=== PATIENT | female | born 1960 | race Caucasian/White ===

== ENCOUNTER 2021-07-17 20:57 | Inpatient (IN) | payer OTHER, SELFPAY ==
[~2021-07-17] VITALS: Ht 152.4 cm; Wt 52.6 kg
[2021-07-17 20:57] VITALS: BP 126/93
--- NOTE | 2021-07-17 20:57 | NUR ---
TO BED VIA JEANNETTE BOWERS WITH C/O FEVER
--- NOTE | 2021-07-17 21:45 | NUR ---
Assumed patient care, here for fever. On assesment patient is alert, non-verbal, moans and groans on verbal/tactile stimulus. Connected to security monitor, IV line started and blood collected, sepsis work-up done.
[2021-07-17] MEDS ORDERED: NACL 0.9% 1,000 ML IV ONE (21:50)
[2021-07-17] MEDS ORDERED: OMEP40EC24 GT (22:12)
[2021-07-17] MEDS ORDERED: DOCU-299 PO (22:12)
[2021-07-17] MEDS ORDERED: DIPH25TA53 GT ×2 (22:12)
[2021-07-17] MEDS ORDERED: VENL37.55 GT (22:12)
[2021-07-17] MEDS ORDERED: FERR75LI22 GT (22:12)
[2021-07-17] MEDS ORDERED: [UNRECOGNIZED DRUG - CODE] RC (22:12)
[2021-07-17] MEDS ORDERED: TRAZ-343 PO (22:12)
[2021-07-17] MEDS ORDERED: MULT-2253 GT (22:12)
[2021-07-17 22:28] LABS: BASOPHILS # (AUTO) 0.1 K/uL (0.00-0.22); BASOPHILS % (AUTO) 0.4 % (0.0-2.0); EOSINOPHILS # (AUTO) 0.3 K/uL (0-0.4); HEMATOCRIT 24.9 % (36-48); HEMOGLOBIN 7.9 g/dL (12.0-16.0); LYMPHOCYTES # (AUTO) 1.9 K/uL (2.5-16.5); LYMPHOCYTES % (AUTO) 6.2 % (20.5-51.1); MEAN CORPUSCULAR HEMOGLOBIN 27 pg (27-31); MEAN CORPUSCULAR HGB CONC 32 g/dL (33-37); MEAN CORPUSCULAR VOLUME 84.8 fL (80-94); MONOCYTES # (AUTO) 2.6 K/uL (0.8-1.0); MONOCYTES % (AUTO) 8.4 % (1.7-9.3); NEUTROPHILS # (AUTO) 25.8 K/uL (1.8-7.7); PLATELET COUNT (AUTO) 538 K/uL (140-450); RED BLOOD CELL COUNT(AUTO) 2.93 MIL/uL (4.20-5.40); RED CELL DISTRIBUTION WIDTH 16.4 % (11.6-13.7)
[2021-07-17 22:40] LABS: WHITE BLOOD COUNT (AUTO) 30.7 K/uL (4.8-10.8)
[2021-07-17] MEDS ORDERED: cefTRIAXone 1,000 MG VIAL ONE (22:47)
--- NOTE | 2021-07-17 23:00 | NUR ---
in and out urinary catheter started, sample collected and sent to laboratory.
[2021-07-17 23:03] LABS: ALBUMIN 2.2 g/dL (3.4-5.0); ANION GAP 14.2 (8-16); CARBON DIOXIDE 25.3 mmol/L (21-32); CREATININE 0.8 mg/dL (0.6-1.3); POTASSIUM 4.5 mmol/L (3.5-5.1); TOTAL BILIRUBIN 0.3 mg/dL (0.0-1.0)
[2021-07-17 23:38] LABS: APPEARANCE,URINE CLEAR (CLEAR); BILIRUBIN,URINE NEGATIVE (NEGATIVE); BLOOD, URINE NEGATIVE (NEGATIVE); COLOR,URINE YELLOW (YELLOW); LEUKOCYTE ESTERASE ,URINE NEGATIVE (NEGATIVE); NITRITE, URINE NEGATIVE (NEGATIVE); PH,URINE 6.5 (5.0-9.0); UGLUCOSE NEGATIVE (NEGATIVE)
[2021-07-17] MEDS ORDERED: ACETAMINOPHEN 650 MG SUPP RC ONE (23:45)
[2021-07-18] MEDS ORDERED: AZITHROMYCIN 500 MG in DEXTROSE 5% 250 ML IV ONE (01:25)
[2021-07-18] MEDS ORDERED: HYDROcodone/APAP 5/325 MG 1 TAB TAB PO PRN (01:35)
[2021-07-18] MEDS ORDERED: MAGNESIUM OXIDE 400 MG TAB PO PRN (01:35)
[2021-07-18] MEDS ORDERED: ONDANSETRON 4 MG/2 ML VIAL IVP PRN (01:35)
[2021-07-18] MEDS ORDERED: POTASSIUM CHLORIDE 10 MEQ TABER PO PRN (01:35)
[2021-07-18] MEDS: NACL 0.9% 1,000 ML IV SCH ×2 (03:00→14:20)
[2021-07-18] MEDS ORDERED: AZITHROMYCIN 500 MG INJ VIAL IV ONE (03:26)
--- NOTE | 2021-07-18 04:25 | NUR ---
Report called to Bryce ANDINO.
[2021-07-18 04:35] VITALS: BP 147/87
--- NOTE | 2021-07-18 04:35 | NUR ---
PT ARRIVED IN UNIT VIA GURNEY. REPORT WAS GIVEN BY ER NURSE MYRON. PT AWAKE AND ALERT, ON 2L VIA NC. BREATHING EQUAL AND UNLABORED,CONTRACTED UPPER AN LOWER EXT.SKIN WARM, DRY AND INTACT. AFEBRILE. RASHES ON PERINEAL AREA. IV ON R AC G 20, FLUSHING WELL BUT REDNESS AROUND THE SITE. ST 117 ON TELE MONITOR. FLACC 0. MRSA SWAB DONE. BED IN LOW LOCKED POSITION. ALL SAFETY MEASURES IN PLACE. WILL CONTINUE TO MONITOR.
--- NOTE | 2021-07-18 06:22 | NUR ---
PT LAYING ON BED. BREATHING EQUAL AND UNLABORED. NO DISTRESS NOTED. WILL CONTINUE TO MONITOR.
--- NOTE | 2021-07-18 07:30 | NUR ---
RECEIVED REPORT FROM MANUFACTURING WORKER NURSE FOR CONTINUITY OF CARE. PT AWAKE IN BED, NON VERBAL WITH CONTRACTED UPPER AND LOWER EXTREMITIES. ON O3 VIA NC AT 2L, BREATHING SYMMETRICAL. WITH GT IN PLACE, NO RUNNING FEEDING AT THIS TIME. FLACC O. LFA 24G RUNNING NS AT 80CC/HR. ALL SAFETY MEASURES IN PLACE.
--- NOTE | 2021-07-18 07:37 | NUR ---
ENDORSED TO AM SHIFT NURSE FOR CONTINUITY OF CARE. PT IS STABLE.
--- NOTE | 2021-07-18 07:59 | NUR ---
PT HAS GT BUT NO FEEDING RUNNING AT THIS TIME. DR ALFREDO MADE AWARE THAT PT HAS JEVITY 1.2 AT 40CC/HR WITH 250ML Q4 WATER FLUSH. ALSO PT IS DNR-DNI PER MOTHER'S REQUEST AT THE BOARD AND CARE BUT FULL CODE HERE AT THE HOSPITAL, ALSO MADE AWARE.
[2021-07-18 08:00] VITALS: BP 152/84
--- NOTE | 2021-07-18 08:03 | NUR ---
RECEIVED CALL FROM PAEG ANDINO AT [facility] AND [facility] AND STATED PT HAS ALLERGY TO ZOSYN, PT'S ALLERGY UPDATED.
--- NOTE | 2021-07-18 08:43 | NUR ---
PATIENT HAS BEEN SCREENED AND CATEGORIZED HIGH NUTRITION RISK. PATIENT WILL BE SEEN WITHIN 1-2 DAYS OF ADMISSION. /09/06 RECEIVED CONSULT AND REFERRAL FOR TUBE FEEDING ROD[address]
--- NOTE | 2021-07-18 10:57 | NUR ---
PT STARTED ON GT FEEDING OF VITAL AF 1.2 AT 40CC/HR WITH 250CC H20 FLUSHES Q6HRS. GT INTACT AND PATENT, WILL CONTINUE TO MONITOR. HOB KEPT ELEVATED
[2021-07-18 12:00] VITALS: BP 127/87
--- NOTE | 2021-07-18 13:40 | NUR ---
PT NOTED WITH BILATERAL BUTTOCK REDNESS THAT SEEMS LIKE DERMATITIS, PT IS INCONTINENT. DR ALFREDO MADE AWARE, ORDER FOR HYDRAGUARD CREAM IN PLACE. WOUND CONSULT ALREADY IN PLACE. ALSO MADE AWARE THAT PT'S HEART RATE RANGES FROM 110-120, TACHYCARDIAC ALREADY UPON ADMISSION LAST NIGHT.
--- NOTE | 2021-07-18 14:00 | NUR ---
SPOKE WITH TEST FIXTURE DESIGNER RODOLFO REGARDING TUBE FEEDING RECOMMENDATION, DR ALFREDO AWARE. INCREASED GTF TO 50CC/HR, 200CC H2O FLUSHES Q6H. RESIDUAL ABOUT 5CC AT THIS TIME. WILL CONTINUE TO MONITOR.
--- NOTE | 2021-07-18 14:22 | NUR ---
PT HAS RAC 20G IV LINE, INFILTRATED, REDNESS NOTED. REMOVED LINE. NO ACTIVE BLEEDING NOTED.
--- NOTE | 2021-07-18 15:03 | NUR ---
07/18/21 RD INITIAL ASSESSMENT COMPLETED PLEASE REFER TO NUTRITION ASSESSMENT UNDER CARE ACTIVITY FOR ESTIMATED NUTRITIONAL NEEDS. 1. RECOMMEND VITAL AF 1.2 WITH A GOAL RATE OF 50 ML/HR -FWF: 200 ML Q6H OR PER MD -WILL PROVIDE 1440 KCAL AND 90 GM PROTEIN, MEETING ESTIMATED NUTRITIONAL NEEDS 2. MONITOR GASTRIC RESIDUALS AND NUTRITION-RELATED LABS 3. RD TO FOLLOW-UP 2-3 DAYS, HIGH RISK RODOLFO CLARK RD
[2021-07-18 16:00] VITALS: BP 129/71
--- NOTE | 2021-07-18 16:36 | NUR ---
DC [age] YRS OLD FEMALE PATIENT WAS ADMITTED FROM [facility] WITH A DX OF SEPSIS. PATIENT HAS A HX OF CEREBRAL PALSY, INTELLECTUAL DISABILITY QUADRIPLEGIC BLIND AND G-TUBE . CXR SHOWED SUSPECTED RIGHT PERIHILAR EDEMA OR PNEUMONIA. RAPID COVID TEST NEGATIVE. WBC 30.7 URINE AND BLOOD CULTURE PENDING. ADMINISTERED IVF, IV ABX AZITHROMYCIN AND ROCEPHIN AND CONTINUED HOME MEDS. DC PLAN TO RETURN TO [facility] WHEN STABLE. CM TO FOLLOW
--- NOTE | 2021-07-18 17:15 | NUR ---
PT ASLEEP. BREATHING SYMMETRICAL, ON O2 2L VIA NC. GT INTACT AND PATENT, 10CC RESIDUAL NOTED. HOB KEPT ELEVATED. NO GI DISTRESS NOTED AT THIS TIME. FLACC O. ALL SAFETY MEASURES IN PLACE.
--- NOTE | 2021-07-18 19:15 | NUR ---
ENDORSED PT TO AREA SECRETARY NURSE. PT IN STABLE CONDITION
[2021-07-18 20:00] VITALS: BP 134/73
--- NOTE | 2021-07-18 21:00 | NUR ---
G TUBE - RESIDUAL 30CC - SOFT ABD. G TUBE FEEDING - TOLERATING - WILL CONT. TO MONITOR .
--- NOTE | 2021-07-18 22:00 | NUR ---
HOT TO TOUCH - TEMP RE CHECK - 100.7 F - INFILTRATED IV SITE - WILL MEDICATE FOR FEVER - ST ON TELE MONITOR , O2 SAT 100 % Addendum: 07/19/21 at 0033 by Juliana Lara RN IV NEEDLE REMOVE - INTACT NEEDLE - MIN. BLEEDING - WILL CONT. TO MONITOR .
--- NOTE | 2021-07-18 22:10 | NUR ---
NEW IV SITE RE INSERTED - MIN. BLEEDING - PROCEDURE TOLERATED WELL BY THE PT - WILL CONT. TO MONITOR .
[2021-07-18] MEDS: AZITHROMYCIN 500 MG in DEXTROSE 5% 250 ML IV SCH (22:17)
[2021-07-18] MEDS: traZODone 50 MG TAB GT SCH (22:20)
[2021-07-18] MEDS: ACETAMINOPHEN 325 MG TAB PO PRN (22:21)
[2021-07-19] VITALS: BP 118/54
[2021-07-19] MEDS: AZITHROMYCIN 500 MG in DEXTROSE 5% 250 ML IV SCH ×2
--- NOTE | 2021-07-19 01:58 | NUR ---
ROUNDS , SLEEPING , CHEST RISE AND FALL EQUALLY , ON O2 SAT MONITOR , ON TELE MONITOR , ON O2 AT 2LPM/NC - O2 SAT 100 % - WILL CONT. TO MONITOR .
[2021-07-19] MEDS: NACL 0.9% 1,000 ML IV SCH ×2 (02:35→14:36)
[2021-07-19 04:00] VITALS: BP 119/69
[2021-07-19 05:46] LABS: BASOPHILS # (AUTO) 0.1 K/uL (0.00-0.22); BASOPHILS % (AUTO) 0.3 % (0.0-2.0); EOSINOPHILS # (AUTO) 0.9 K/uL (0-0.4); EOSINOPHILS % (AUTO) 3.7 % (0.0-4.0); HEMATOCRIT 21.1 % (36-48); LYMPHOCYTES # (AUTO) 1.1 K/uL (2.5-16.5); LYMPHOCYTES % (AUTO) 4.4 % (20.5-51.1); MEAN CORPUSCULAR HEMOGLOBIN 26 pg (27-31); MEAN CORPUSCULAR HGB CONC 31 g/dL (33-37); MEAN CORPUSCULAR VOLUME 85.5 fL (80-94); MONOCYTES # (AUTO) 2.1 K/uL (0.8-1.0); MONOCYTES % (AUTO) 8.6 % (1.7-9.3); NEUTROPHILS # (AUTO) 20.6 K/uL (1.8-7.7); PLATELET COUNT (AUTO) 428 K/uL (140-450); RED BLOOD CELL COUNT(AUTO) 2.47 MIL/uL (4.20-5.40); RED CELL DISTRIBUTION WIDTH 16.6 % (11.6-13.7); WHITE BLOOD COUNT (AUTO) 24.9 K/uL (4.8-10.8)
[2021-07-19 05:57] LABS: ANION GAP 11.9 (8-16); CARBON DIOXIDE 27.2 mmol/L (21-32); CREATININE 0.8 mg/dL (0.6-1.3); POTASSIUM 4.1 mmol/L (3.5-5.1)
[2021-07-19 06:02] LABS: HEMOGLOBIN 6.5 g/dL (12.0-16.0)
--- NOTE | 2021-07-19 07:00 | NUR ---
RELAYED TO A PALIWAL ABOUT LATEST HGB , HCT , WBC- WILL CONT. TO MONITOR. Addendum: 07/19/21 at 0743 by Juliana Lara RN THE ABOVE NURSE'S NOTE IS AN ERROR ENTRY - ABRAHAM
--- NOTE | 2021-07-19 07:25 | NUR ---
RECEIVED BEDSIDE REPORT FROM TOMBSTONE CARVER NURSE FOR CONTINUITY OF CARE. PT IS APHASIC, NONVERBAL. ON 2L O2 NC WITH BREATHING UNLABORED. G TUBE IN PLACE WITH FEEDING INFUSING. PT IS INCONTINENT WITH DRY DIAPER IN PLACE. INCONTINENT DERMATITIS WITH HYPOGUARD AT BEDSIDE. IV IS IN THE LEFT HAND 24 GAUGE WITH NS INFUSING. PT IS STABLE. PLAN OF CARE DISCUSSED.
--- NOTE | 2021-07-19 07:35 | NUR ---
ENDORSED - PT - STABLE , ON HIGH BACK REST .AWAKE
--- NOTE | 2021-07-19 07:43 | NUR ---
RELAYED THE LATEST HGB - HE TEXTED BACK W/ NEW ORDERS - THE DR ALFREDO'S NEW ORDER - ENDORSED TO NURSE MICHAEL - SHE WILL CARRY OUT .
--- NOTE | 2021-07-19 07:44 | NUR ---
REPORTED HGB LEVEL OF 6.[address] ALFREDO VIA MESSAGE. HE RESPONDED WITH ORDER FOR 2 UNITS PRBC. PLACED ORDER, WILL WAIT FOR BLOOD TO BE READY.
[2021-07-19 08:00] VITALS: BP 136/71
[2021-07-19] MEDS ORDERED: VENLAFAXINE 37.5 MG TAB GT SCH (09:00)
--- NOTE | 2021-07-19 09:00 | NUR ---
MESSAGED DR. ALFREDO TO INFORM HIM HE NEEDS TO SIGN CONSENT PRIOR TO BLOOD TRANSFUSION ADMINISTRATION. WILL ADMINISTER BLOOD PRODUCT WHEN CONSENT IS SIGNED.
--- NOTE | 2021-07-19 09:15 | NUR ---
WOUND CARE EVALUATION NOTE: PT ADMITTED WITH NO OPEN WOUND.MOISTURE ASSOCIATED DERMATITIS TO PERINEUM AND BUTTOCKS, SKIN MOIST, INTACT. GT SITE LIZETT-STOMA SKIN INTACT. PT. ADMITTED WITH LOW REGI SCALE AT HIGH RISK, CONTINUE TO FOLLOW PRESSURE INJURY PREVENTION INTERVENTIONS. RECOMMENDATIONS: -CLEANSE PERINEUM AND BUTTOCKS WITH MILD SOAP AND WATER, PAT DRY, APPLY CALMOSEPTINE CREAM BID AND PRN IF SOILING -TURN AND REPOSITION PATIENT Q 2H -INSPECT SKIN UNDER AND AROUND MEDICAL DEVICES. -ASSESS AND MONITOR SKIN CONDITION DURING POSITION CHANGE -OFFLOAD BILATERAL HEELS BY PLACING PILLOWS UNDER CALVES AT ALL TIMES, UNLESS OTHERWISE CONTRAINDICATED -APPLY HEEL PROTECTORS -PRESSURE REDISTRIBUTION SURFACE AND OFFLOADING SACRALCOCCYX -MANAGE FRICTION AND SHEAR BY USING LIFT SHEET TO REPOSITION PATIENT -HOB 30 DEGREE TOLERATE -PLEASE FOLLOW RD RECOMMENDATIONS PLEASE NOTIFIED WOUND CARE NURSE FOR ANY CHANGE OF SKIN CONDITION
[2021-07-19] MEDS: HYDRAGUARD CREAM TP SCH (09:40)
[2021-07-19] MEDS: ENOXAPARIN 40 MG/0.4 ML SYR SUBQ SCH (09:40)
--- NOTE | 2021-07-19 10:00 | NUR ---
PT IS AWAKE, APHASIC. IV WAS INFILTRATED AND REMOVED. NEED TO PLACE NEW IV SHORTLY. G TUBE IN PLACE. DRY DIAPER IN PLACE. WILL CONT TO MONITOR.
[2021-07-19 12:00] VITALS: BP 104/70
--- NOTE | 2021-07-19 13:00 | NUR ---
NEW IV'S PLACED IN THE RIGHT HAND 24 GAUGE BY CHARGE NURSE. ANOTHER IV PLACED IN THE LEFT FOREARM 20 GAUGE. IV FLUIDS STARTED.
[2021-07-19] MEDS: MENTHOL/ZINC OXIDE 113 GM TUBE TP SCH (13:25)
--- NOTE | 2021-07-19 14:00 | NUR ---
PHYSICIAN AT BEDSIDE. SPOKE TO MILENA THAO ON THE PHONE. RECEIVED VERBAL CONSENT FOR BLOOD TRANSFUSION WHICH WAS VERIFIED BY SECOND RN. CONSENT SIGNED BY PHYSICIAN. CALLED LAB AND BLOOD IS NOT READY, THEY WILL CALL WHEN BLOOD IS READY TO BE PICKED UP.
[2021-07-19 16:00] VITALS: BP 138/83
--- NOTE | 2021-07-19 16:01 | NUR ---
BATH WAS PROVIDED AND PT WAS REPOSITIONED. NO DISTRESS NOTED. UPPER AND LOWER EXTREMITIES ARE CONTRACTED. FLACC 0. G TUBE IS IN PLACE INFUSING FEEDING ORDERED. IV'S INTACT INFUSING FLUIDS. BED IS IN LOWEST POSITION.
--- NOTE | 2021-07-19 18:05 | NUR ---
BLOOD TRANSFUSION WAS STARTED. VS ARE STABLE AT THIS TIME. PT IS APHASIC, NONVERBAL WITH NO SIGNS OF DISTRESS. IV IS PATENT AND INFUSING. WILL CONTINUE TO MONITOR PT.
--- NOTE | 2021-07-19 19:09 | NUR ---
ENDORSED PT TO MEDICARE SALES REPRESENTATIVE NURSE FOR CONTINUITY OF CARE. PT IS STABLE. ONE UNIT OF BLOOD STILL INFUSING. PT TOLERATING IT WELL. VS STABLE. NO DISTRESS NOTED. PLAN OF CARE DISCUSSED.
[2021-07-19 20:00] VITALS: BP 133/85
--- NOTE | 2021-07-19 22:00 | NUR ---
VOMITED COFFEE GROUND VOMITUS - STOP FEEDING , WOF ACUTE SIGNS OF DISTRESS - O2 SAT 97 % - WILL REFER TO DR ALFREDO . Addendum: 07/20/21 at 0754 by Juliana Lara RN REFERRED TO DR. ALFREDO , I INFORMED DR. ALFREDO I STOPPED FOR I WHILE THE FEEDING DUE TO VOMITING AND I WILL RESUME IT IF NO PROGRESSION OF VOMITING - DR. ALFREDO TEXT BACK " OK " . AND HE MADE NEW ORDER AND WILL CARRY OUT .
--- NOTE | 2021-07-19 22:09 | NUR ---
O2 SAT 99 % - AWAKE NO SIGNS OF ACUTE DISTRESS NOTED AT THIS TIME - WILL SENT FOR CT ABD.
[2021-07-19] MEDS: traZODone 50 MG TAB GT SCH (23:47)
[2021-07-20] VITALS: BP 127/85
--- NOTE | 2021-07-20 00:06 | NUR ---
BP 122/77 , 02 SAT 98 % , HR 125 - WILL FF UP PRBC TO THE LAB , WILL RESUME G TUBE FEEDING - NO PROGRESS OF VOMITING NOTED AT THIS TIME .
--- NOTE | 2021-07-20 01:08 | NUR ---
2ND BAG PRBC - NOT STILL AVAILABLE - INFORMED CHARGE NURSE IF FOR CBC - HOURS AFTER THE 1ST BAG OR WILL WAIT THE 2ND UNIT OF PRBC - CHARGE NURSE SAID - WAIT THE 2ND U PRBC TO BE CONSUMED BEFORE THE RPT CBC POST BT .
--- NOTE | 2021-07-20 01:30 | NUR ---
HOT TO TOUCH - TEMP. RE CHECKED - T 100.2 - INFORMED CHARGE NURSE . WILL WAIT TILL FEVER SUBSIDE BEFORE HOOK THE 2ND U PRBC .- TSB.
[2021-07-20] MEDS: MENTHOL/ZINC OXIDE 113 GM TUBE TP SCH ×2 (01:35→13:40)
[2021-07-20] MEDS: ACETAMINOPHEN 325 MG TAB PO PRN (01:51)
--- NOTE | 2021-07-20 01:52 | NUR ---
NO N/V NOTED - RESUME FEEDING - FOR CLOSELY WATCH .
--- NOTE | 2021-07-20 01:58 | NUR ---
ASSESSED BY RT DURING ROUNDS .WILL CONT. TO MONITOR .
--- NOTE | 2021-07-20 03:00 | NUR ---
TEMP RE CHECK - 97.7 F Addendum: 07/20/21 at 0303 by Juliana Lara RN NO N/V NOTED - WILL INCREASE G TUBE FEEDING GRADUALLY - WILL CONT. TO MONITOR .
--- NOTE | 2021-07-20 03:30 | NUR ---
NO S/SX OF BLOOD RXN - WILL CONT. TO MONITOR
[2021-07-20 04:00] VITALS: BP 121/80
--- NOTE | 2021-07-20 04:00 | NUR ---
NO S/SX OF DISTRESS NOTED AT THIS TIME , NO BLD RXN NOTED AT THIS TIME , WILL CONT. TO MONITOR .
--- NOTE | 2021-07-20 06:00 | NUR ---
ROUNDS , NO SIGNS OF DISTRESS NOTED , NO BT RXN NOTED , FEEDING TOLERATED - WILL CONT. TO MONITOR . DR. ALFREDO AWARE ABOUT THE RESULT OF CT ABD/ PELVIS .
--- NOTE | 2021-07-20 06:30 | NUR ---
2ND U PRBC COMPLETED - NO BT RXN NOTED . NO SIGNS OF ACUTE DISTRESS NOTED , FEEDING TOLERATED .
--- NOTE | 2021-07-20 07:25 | NUR ---
RECEIVED BEDSIDE REPORT FROM AUTO TECH NURSE FOR CONTINUITY OF CARE. PT IS APHASIC, NONVERBAL. ON 2L O2 NC WITH BREATHING UNLABORED. ON TELE MONITOR. G TUBE IN PLACE INFUSING FEEDING ORDERED. INCONTINENT OF THE BOWEL AND BLADDER. INCONTINENT DERMATITIS NOTED IN THE PERINEAL AREA WITH MEDICINE AT BEDSIDE TO APPLY ORDERED. IV IS IN THE RIGHT HAND 24 GAUGE AND LEFT FA 20 GAUGE INFUSING FLUID ORDERED. PT IS STABLE. PLAN OF CARE DISCUSSED.
--- NOTE | 2021-07-20 07:39 | NUR ---
ENDORSED - PT - STABLE , ON O2 SAT MONITOR , ON HIGH BACK REST .
[2021-07-20 08:00] VITALS: BP 139/85
--- NOTE | 2021-07-20 08:04 | NUR ---
INFORM CHARGE NURSE ANTONY TO PUT AN ORDER FOR RPT CBC POST BT AT 0830 TODAY - ANTONY VERBALIZES UNDERSTANDING . 2ND U PRBC BT COMPLETED AT 0630 TODAY .
[2021-07-20] MEDS: PANTOPRAZOLE 40 MG INJ VIAL IVP SCH (08:57)
[2021-07-20] MEDS: HYDRAGUARD CREAM TP SCH (08:58)
[2021-07-20] MEDS: ENOXAPARIN 40 MG/0.4 ML SYR SUBQ SCH (09:00)
--- NOTE | 2021-07-20 09:01 | NUR ---
HELD LOVENOX DUE TO DROP IN HGB, S/P BLOOD TRANSFUSION 2 UNITS. POSSIBLE BLEEDING OF UNKNOWN SOURCE.
--- NOTE | 2021-07-20 09:30 | NUR ---
PT WAS CHANGED AND BED BATH GIVEN. PT TOLERATED MOVEMENT FAIRLY. DOES NOT ASSIST WITH MOVEMENT, BEDBOUND AND CONTRACTED. BREATHING UNLABORED ON 2L O2 NC. FLACC 0. PT STABLE.
--- NOTE | 2021-07-20 10:07 | NUR ---
(07/20/21) RD FOLLOW UP COMPLETED PLEASE REFER TO NUTRITION PROGRESS NOTE UNDER CARE ACTIVITY FOR ESTIMATED NUTRITION NEEDS. RD RECOMMENDATIONS: 1. CONTINUE VITAL AF 1.2 WITH A GOAL RATE OF 50 ML/HR -FWF: 200 ML Q6H OR PER MD -WILL PROVIDE 1440 KCAL AND 90 GM PROTEIN, MEETING ESTIMATED NUTRITIONAL NEEDS 2. MONITOR GASTRIC RESIDUALS AND NUTRITION-RELATED LABS 3. RD TO FOLLOW-UP 2-3 DAYS, HIGH RISK ANY SHEETS MS, RDN
[2021-07-20 10:12] LABS: BASOPHILS % (AUTO) 0.1 % (0.0-2.0); EOSINOPHILS # (AUTO) 0.6 K/uL (0-0.4); EOSINOPHILS % (AUTO) 2.4 % (0.0-4.0); HEMATOCRIT 33.8 % (36-48); HEMOGLOBIN 11.1 g/dL (12.0-16.0); LYMPHOCYTES # (AUTO) 0.8 K/uL (2.5-16.5); LYMPHOCYTES % (AUTO) 3.4 % (20.5-51.1); MEAN CORPUSCULAR HEMOGLOBIN 28 pg (27-31); MEAN CORPUSCULAR HGB CONC 33 g/dL (33-37); MEAN CORPUSCULAR VOLUME 84.6 fL (80-94); MONOCYTES # (AUTO) 1.9 K/uL (0.8-1.0); NEUTROPHILS # (AUTO) 19.9 K/uL (1.8-7.7); NEUTROPHILS % (AUTO) 86.1 % (42.2-75.2); PLATELET COUNT (AUTO) 411 K/uL (140-450); RED BLOOD CELL COUNT(AUTO) 3.99 MIL/uL (4.20-5.40); RED CELL DISTRIBUTION WIDTH 15.7 % (11.6-13.7)
[2021-07-20 10:16] LABS: ANION GAP 11.6 (8-16); CARBON DIOXIDE 26.9 mmol/L (21-32); CREATININE 0.6 mg/dL (0.6-1.3); POTASSIUM 3.5 mmol/L (3.5-5.1)
[2021-07-20 11:17] LABS: WHITE BLOOD COUNT (AUTO) 23.2 K/uL (4.8-10.8)
--- NOTE | 2021-07-20 11:26 | NUR ---
ROUNDED ON PT. SHE IS AWAKE WITH EYES OPEN. APHASIC AND NONVERBAL. NO DISTRESS NOTED. G TUBE INFUSING, RESIDUAL IS LESS THAN 5 ML. PT IS STABLE.
[2021-07-20 12:00] VITALS: BP 118/68
--- NOTE | 2021-07-20 13:30 | NUR ---
PT IS SLEEPING IN SEMI FOWLERS POSITION. G TUBE FEEDING IS INFUSING ORDERED. TOLERATING IT WELL WITH LESS THAN 10 ML RESIDUAL. IVS ARE PATENT AND INTACT. BREATHING IS UNLABORED. PT IS STABLE. WILL MONITOR.
--- NOTE | 2021-07-20 15:12 | NUR ---
PT WAS CHANGED AND REPOSITIONED. PT VOIDED IN THE DIAPER WITH SCANT AMOUNT OF BM. BM WAS DARK BROWN IN COLOR. PT TOLERATED MOVEMENT OKAY. CONTRACTED UPPER AND LOWER EXTREMITIES WITH PILLOWS TO SUPPORT BONY REGIONS. PT STABLE.
[2021-07-20 16:00] VITALS: BP 118/75
--- NOTE | 2021-07-20 17:30 | NUR ---
PT IS RESTING COMFORTABLY. NO DISTRESS NOTED. BREATHING IS UNLABORED ON RA. O2 SAT IS 92%. G TUBE RESIDUAL IS LESS THAN 5 ML. WILL CONTINUE TO MONITOR.
--- NOTE | 2021-07-20 19:24 | NUR ---
ENDORSED PT TO DIRECTOR DIGITAL ANALYTICS NURSE FOR CONTINUITY OF CARE. PT IS STABLE. PLAN OF CARE DISCUSSED.
--- NOTE | 2021-07-20 19:28 | NUR ---
RECEIVED REPORT FROM AM RN. PATIENT IS APHASIC. NO S/S OF RESPIRATORY DISTRESS. RESPIRATION EVEN UNLABORED. ALL SAFETY PRECAUTIONS ARE IN PLACE. G-TUBE FEEDING VITAL AF RUNNING AT 50 MLS/HR TOLERATING WELL. RESIDUAL 5ML NOTED. IVF NS INFUSING AT 10 ML ON THE RIGHT HAND. SKIN WARM AND DRY TO THE TOUCH. FLACC 0. WILL CONTINUE TO MONITOR.
--- NOTE | 2021-07-20 19:53 | NUR ---
ADMINISTERED SCHEDULED MEDICATIONS DUE.
[2021-07-20 20:00] VITALS: BP 112/72
[2021-07-20] MEDS: traZODone 50 MG TAB GT SCH (20:14)
[2021-07-20] MEDS: AZITHROMYCIN 500 MG in DEXTROSE 5% 250 ML IV SCH (20:56)
--- NOTE | 2021-07-20 22:57 | NUR ---
URINE CULTURE RESULTS ENTEROCOCCUS FAECIUM VRE. SOFTWARE TEST DEVELOPER DR JONES MADE AWARE WITH NEW ORDERS, CARRIED OUT. PLS CONTACT DR. HERNANDEZ FOR ABX ZYVOX APPROVAL.
[2021-07-21] VITALS: BP 118/68
[2021-07-21] MEDS: MENTHOL/ZINC OXIDE 113 GM TUBE TP SCH ×2 (01:00→13:11)
--- NOTE | 2021-07-21 02:00 | NUR ---
HANGED A NEW FEEDING BOTTLE. PATIENT IS SLEEPING. OBSERVED CHEST RISE AND FALL. NO DISTRESS.
[2021-07-21 04:00] VITALS: BP 122/77
[2021-07-21 06:01] LABS: BASOPHILS # (AUTO) 0.1 K/uL (0.00-0.22); BASOPHILS % (AUTO) 0.3 % (0.0-2.0); EOSINOPHILS # (AUTO) 1.1 K/uL (0-0.4); EOSINOPHILS % (AUTO) 5.3 % (0.0-4.0); HEMATOCRIT 31.2 % (36-48); HEMOGLOBIN 10.3 g/dL (12.0-16.0); LYMPHOCYTES # (AUTO) 1.1 K/uL (2.5-16.5); LYMPHOCYTES % (AUTO) 5.1 % (20.5-51.1); MEAN CORPUSCULAR HEMOGLOBIN 28 pg (27-31); MEAN CORPUSCULAR HGB CONC 33 g/dL (33-37); MEAN CORPUSCULAR VOLUME 85.2 fL (80-94); MONOCYTES # (AUTO) 1.5 K/uL (0.8-1.0); MONOCYTES % (AUTO) 7.5 % (1.7-9.3); NEUTROPHILS # (AUTO) 16.9 K/uL (1.8-7.7); PLATELET COUNT (AUTO) 438 K/uL (140-450); RED BLOOD CELL COUNT(AUTO) 3.66 MIL/uL (4.20-5.40); RED CELL DISTRIBUTION WIDTH 15.8 % (11.6-13.7); WHITE BLOOD COUNT (AUTO) 20.6 K/uL (4.8-10.8)
[2021-07-21 06:18] LABS: ANION GAP 11.1 (8-16); CARBON DIOXIDE 27.5 mmol/L (21-32); CREATININE 0.7 mg/dL (0.6-1.3); POTASSIUM 3.6 mmol/L (3.5-5.1)
[2021-07-21 06:42] LABS: NEUTROPHILS % (AUTO) 81.8 % (42.2-75.2)
--- NOTE | 2021-07-21 07:20 | NUR ---
ENDORSED PATIENT TO AM NURSE FOR CONTINUITY OF CARE.PT IS STABLE.
--- NOTE | 2021-07-21 07:36 | NUR ---
RECEIVED BEDSIDE REPORT FROM SOCIAL WORK PROFESSOR NURSE FOR CONTINUITY OF CARE. PT IS APHASIC, NONVERBAL. ON RA WITH BREATHING UNLABORED. ON TELE MONITOR. G TUBE IN PLACE INFUSING FEEDING ORDERED. INCONTINENT OF THE BOWEL AND BLADDER. REDNESS ON THE PERINEAL REGION AND BUTTOCKS; INCONTINENT DERMATITIS. IV IS IN THE LEFT FA AND RIGHT HAND INTACT AND PATENT. PT IS STABLE. PLAN OF CARE DISCUSSED.
[2021-07-21 08:00] VITALS: BP 141/69
--- NOTE | 2021-07-21 08:21 | NUR ---
WAS INFORMED BY PHARMACIST THAT THERE IS A DRUG INTERACTION WITH THE NEW ORDER FOR LINEZOLID AND EFFEXOR. RECOMMENDED STOPPING EFFEXOR FOR NOW. MESSAGED DR. ALFREDO INFORMING HIM OF THIS SITUATION AND ASKING IF HE WOULD LIKE TO STOP THE EFFEXOR FOR NOW SO WE CAN ADMINISTER LINEZOLID. WILL WAIT FOR RESPONSE.
--- NOTE | 2021-07-21 08:55 | NUR ---
RECEIVED MESSAGE FROM DR. ALFREDO TO STOP EFFEXOR AND START LINEZOLID. INFORMED PHARMACIST AND SHE STATED SHE WILL PUT IN THESE ORDERS.
[2021-07-21] MEDS: PANTOPRAZOLE 40 MG INJ VIAL IVP SCH (09:03)
[2021-07-21] MEDS: ENOXAPARIN 40 MG/0.4 ML SYR SUBQ SCH (09:04)
[2021-07-21] MEDS: LINEZOLID 600MG PREMIX 300 ML IV SCH ×2 (09:04→21:48)
[2021-07-21] MEDS: HYDRAGUARD CREAM TP SCH (09:07)
--- NOTE | 2021-07-21 10:05 | NUR ---
RECEIVED VERBAL ORDER FOR PT/PTT/INR FROM DR. HERNANDEZ. FOLLOWED UP WITH RADIOLOGY DEPARTMENT ABOUT LEFT NEPHROSTOMY TUBE PLACEMENT. THEY STATED THEY WILL FOLLOW UP WITH THE RADIOLOGIST AND CALL ME BACK FOR MORE INFO.
--- NOTE | 2021-07-21 10:34 | NUR ---
LAB AT BEDSIDE DRAWING PT/PTT/INR. PT TOLERATED FAIRLY. AFTER PT WAS GIVEN BED BATH AND OINTMENT APPLIED TO BUTTOCKS AND PERINEAL AREA. PT IS CONTRACTED UPPER AND LOWER EXTREMITIES BILAT. PT IS STABLE. WILL CONTINUE TO MONITOR.
[2021-07-21 11:10] LABS: PROTHROMBIN TIME 9.8 secs (10.8-13.4)
--- NOTE | 2021-07-21 11:35 | NUR ---
PROVIDED THE PT/PTT/INR RESULTS TO THE RADIOLOGY DEPARTMENT. THEY WILL CALL ME BACK AFTER SPEAKING WITH THE RADIOLOGIST ON WHETHER OR NOT THEY WILL PLACE THE NEPHROSTOMY TUBE TODAY.
--- NOTE | 2021-07-21 11:53 | NUR ---
RECEIVED CALL BACK FROM RADIOLOGY DEPARTMENT. [facility] PROVIDED ORDERS FROM DR. LOPEZ TO PLACE NEPHROSTOMY TUBE TOMORROW. ORDERS GIVEN TO HOLD BLOOD THINNER TOMORROW AND PLACE NPO AFTER MIDNIGHT. ORDERS PLACED. WILL ENDORSE TO ETHNOARCHAEOLOGIST NURSE.
[2021-07-21 12:00] VITALS: BP 125/78
--- NOTE | 2021-07-21 12:00 | NUR ---
CALLED PHARMACIST AND SHE PUT THE LOVENOX ON HOLD TILL AFTER THE IR PROCEDURE TOMORROW.
--- NOTE | 2021-07-21 12:17 | NUR ---
PT IS SLEEPING IN SEMI FOWLERS POSITION. PT IS STABLE. FLACC 0. IVS ARE INTACT AND PATENT. BED ALARM ON. WILL MONITOR.
--- NOTE | 2021-07-21 15:00 | NUR ---
PT WAS REPOSITIONED. PT VOIDED IN DIAPER AND WAS CHANGED. NO DISTRESS NOTED. BREATHING IS UNLABORED. FLACC 0. WILL MONITOR.
[2021-07-21 16:00] VITALS: BP 138/76
--- NOTE | 2021-07-21 17:43 | NUR ---
PT IS APHASIC. ON RA WITH NO RESP. DISTRESS. CLEAN AND DRY WITH DIAPER INTACT. G TUBE IS IN PLACE AND FEEDING IS INFUSING. RESIDUAL IS LESS THAN 5 ML. PT STABLE.
--- NOTE | 2021-07-21 19:24 | NUR ---
PT WAS ENDORSED TO COUNSELOR CAMP NURSE FOR CONTINUITY OF CARE. PT IS STABLE. PLAN OF CARE DISCUSSED.
--- NOTE | 2021-07-21 19:25 | NUR ---
RECEIVED PT FROM AM NURSE FOR CONTINUITY OF CARE. PT STABLE IV INTACT ,GT FEEDING RUNNING, ALL SAFETY MEASURES IN PLACE,BREATHING EVEN AND UNLABORED
[2021-07-21 20:00] VITALS: BP 153/95
[2021-07-21] MEDS: traZODone 50 MG TAB GT SCH (21:46)
--- NOTE | 2021-07-21 22:00 | NUR ---
ALL MEDS GIVEN TOLERATED WELL, NO DISTRESS NOTED
[2021-07-21] MEDS: ACETAMINOPHEN 325 MG TAB PO PRN (23:37)
[2021-07-22] VITALS: BP 150/87
--- NOTE | 2021-07-22 | NUR ---
PATIENT TEMP 100.6,TYLENOL 650 MG GIVEN AND COOLING MEASURES,ALL SAFETY MEASURES IN PLACE ,NO DISTRESS NOTED
--- NOTE | 2021-07-22 01:33 | NUR ---
TEMP 98.0 AT THIS TIME, BREATHING EVEN AND UNLABORED .NO DISTRESS NOTED
[2021-07-22] MEDS: MENTHOL/ZINC OXIDE 113 GM TUBE TP SCH ×2 (02:38→13:00)
[2021-07-22 04:00] VITALS: BP 154/96
--- NOTE | 2021-07-22 04:00 | NUR ---
PATIENT TEMP WNL, ALL SAFETY MEASURES IN PLACE,NO DISTRESS NOTED
[2021-07-22 05:29] LABS: HEMATOCRIT 32.4 % (36-48); HEMOGLOBIN 10.7 g/dL (12.0-16.0); MEAN CORPUSCULAR HEMOGLOBIN 28 pg (27-31); MEAN CORPUSCULAR HGB CONC 33 g/dL (33-37); PLATELET COUNT (AUTO) 503 K/uL (140-450); RED BLOOD CELL COUNT(AUTO) 3.81 MIL/uL (4.20-5.40); RED CELL DISTRIBUTION WIDTH 16.5 % (11.6-13.7); WHITE BLOOD COUNT (AUTO) 20.8 K/uL (4.8-10.8)
[2021-07-22 05:45] LABS: ANION GAP 10.7 (8-16); CARBON DIOXIDE 30.3 mmol/L (21-32); CREATININE 0.7 mg/dL (0.6-1.3)
--- NOTE | 2021-07-22 06:00 | NUR ---
CLEANED AND REPOSITIONED,NO DISTRESS NOTED ,GT FEEDING RUNNING,
--- NOTE | 2021-07-22 07:48 | NUR ---
RECEIVED REPORT FROM PM RN FOR CONTINUITY OF CARE, PT NONVERBAL, APPEARS ASLEEP, VSS, NO ACUTE DISTRESS, SAFETY MEASURES MAINTAINED, CALL LIGHT WITHIN REACH, WILL CONTINUE TO MONITOR
[2021-07-22 08:00] VITALS: BP 125/92
[2021-07-22] MEDS: PANTOPRAZOLE 40 MG INJ VIAL IVP SCH (08:55)
[2021-07-22] MEDS: LINEZOLID 600MG PREMIX 300 ML IV SCH ×2 (08:55→22:43)
[2021-07-22] MEDS: HYDRAGUARD CREAM TP SCH (08:56)
--- NOTE | 2021-07-22 09:17 | NUR ---
SPOKE TO EMMY AT [facility] - STATED MOM IS INVOLVED IN CARE AND WOULD CONSENT. LEFT MOM MILENA Hardwick VOICEMAIL @ [phone]
--- NOTE | 2021-07-22 10:30 | NUR ---
RECEIVED TELEPHONE CONSENT FROM MOTHER Kristin ABBOTT FOR NEPHROSTOMY TUBE PLACEMENT
[2021-07-22] MEDS ORDERED: fentaNYL citrate 0.05 MG/ML VIAL ONE (11:11)
[2021-07-22] MEDS ORDERED: MIDAZOLAM 5 MG/5 ML VIAL ONE (11:12)
[2021-07-22 12:00] VITALS: BP 140/94
--- NOTE | 2021-07-22 12:09 | NUR ---
PATIENT OFF OF UNIT - TO IR FOR NEPHROSTOMY PLACEMENT
[2021-07-22] MEDS ORDERED: LEVOFLOXACIN 500 MG/D5W PREMIX 100 ML IV ONE (12:50)
--- NOTE | 2021-07-22 13:04 | NUR ---
LATE ENTRY- IV CEFTRIAXONE DISCONTINUED AT 0425.
--- NOTE | 2021-07-22 14:37 | NUR ---
PT RETURNED FROM IR S/P L NEPHROSTOMY TUBE PLACEMENT - DRESSING DRY AND INTACT. RED DRAINAGE, SAFETY MEASURES MAINTAINED, WILL CONTINUE TO MONITOR
[2021-07-22 16:00] VITALS: BP 110/59
[2021-07-22 17:09] LABS: EOSINOPHILS % (MANUAL) 5 % (0-4); LYMPHOCYTES % (MANUAL) 11 % (20-46); MONOCYTES % (MANUAL) 3 % (5-12)
--- NOTE | 2021-07-22 19:21 | NUR ---
PATIENT ON ROOM AIR SATS 92%. NO SOB NOTED
[2021-07-22 20:00] VITALS: BP 124/76
--- NOTE | 2021-07-22 20:20 | NUR ---
PATIENT IS APHASIC. NO S/S OF RESPIRATORY DISTRESS. ON ROOM AIR. RESPIRATION EVEN UNLABORED. ALL SAFETY PRECAUTIONS ARE IN PLACE. IVF INFUSING AT TKO. TUBE FEEDING VITAL AF RUNNING AT 50 ML/HR TOLERATING WELL. FLACC 0. WILL CONTINUE TO MONITOR.
--- NOTE | 2021-07-22 22:43 | NUR ---
MEDICATIONS ADMINISTERED ORDERED.
[2021-07-22] MEDS: traZODone 50 MG TAB GT SCH (22:44)
[2021-07-23] VITALS: BP 136/81
--- NOTE | 2021-07-23 00:10 | NUR ---
PATIENT CLEANED, CHANGED AND REPOSITIONED.
[2021-07-23] MEDS: MENTHOL/ZINC OXIDE 113 GM TUBE TP SCH ×2 (01:00→12:38)
--- NOTE | 2021-07-23 02:50 | NUR ---
MADE ROUNDS. PT IS SLEEPING. LEFT NEPHROSTOMY TUBE DRAINING PINKISH OUTPUT. DRESSING DRY AND INTACT.
[2021-07-23 04:00] VITALS: BP 118/90
[2021-07-23 05:26] LABS: BASOPHILS % (AUTO) 0.2 % (0.0-2.0); EOSINOPHILS # (AUTO) 0.3 K/uL (0-0.4); EOSINOPHILS % (AUTO) 1.2 % (0.0-4.0); HEMATOCRIT 31.1 % (36-48); HEMOGLOBIN 10.2 g/dL (12.0-16.0); LYMPHOCYTES # (AUTO) 1.6 K/uL (2.5-16.5); LYMPHOCYTES % (AUTO) 5.7 % (20.5-51.1); MEAN CORPUSCULAR HEMOGLOBIN 28 pg (27-31); MEAN CORPUSCULAR HGB CONC 33 g/dL (33-37); MEAN CORPUSCULAR VOLUME 85.4 fL (80-94); MONOCYTES # (AUTO) 1.3 K/uL (0.8-1.0); MONOCYTES % (AUTO) 4.8 % (1.7-9.3); NEUTROPHILS # (AUTO) 24.9 K/uL (1.8-7.7); NEUTROPHILS % (AUTO) 88.1 % (42.2-75.2); PLATELET COUNT (AUTO) 492 K/uL (140-450); RED BLOOD CELL COUNT(AUTO) 3.64 MIL/uL (4.20-5.40); RED CELL DISTRIBUTION WIDTH 16.3 % (11.6-13.7)
[2021-07-23 05:30] LABS: WHITE BLOOD COUNT (AUTO) 28.3 K/uL (4.8-10.8)
[2021-07-23 06:52] LABS: ANION GAP 10.4 (8-16); CARBON DIOXIDE 30.2 mmol/L (21-32); CREATININE 0.7 mg/dL (0.6-1.3); POTASSIUM 3.6 mmol/L (3.5-5.1)
--- NOTE | 2021-07-23 07:15 | NUR ---
ENDORSED TO AM NURSE FOR CONTINUITY OF CARE. PT IS STABLE.
--- NOTE | 2021-07-23 07:59 | NUR ---
RECEIVED REPORT FROM WINCH RUNNER RN. VSAlthea. NAD NOTED. NO RESIDUAL AND FEEDING RESTARTED. WILL CONTINUE TO MONITOR.
[2021-07-23 08:02] VITALS: BP 126/88
[2021-07-23] MEDS: HYDRAGUARD CREAM TP SCH (08:39)
[2021-07-23] MEDS: LINEZOLID 600MG PREMIX 300 ML IV SCH ×2 (08:39→21:29)
[2021-07-23] MEDS: PANTOPRAZOLE 40 MG INJ VIAL IVP SCH (08:39)
[2021-07-23 12:00] VITALS: BP 122/83
--- NOTE | 2021-07-23 12:10 | NUR ---
DC PLANNING: KENDELL SPOKE WITH GARY WEBSTER AT [facility] ([phone]), SHE STATES THE PATIENT CAN RETURN TO [facility] WITH THE LEFT NEPHROSTOMY TUBE. KENDELL WILL FOLLOW. Addendum: 07/23/21 at 1251 by Bonnie VELASCO DC PLANNING BRITNI ATTEMPTED TO SPEAK EMMY WEBSTER FROM [facility] AT . EMMY DID NOT ANSWER THE CALL AND BRITNI WILL CONTINUE ATTEMPTING TO CONTACT HER TO DISCUSS AND GATHER PATIENT INFORMATION. BRITNI LEFT HER A VOICE MAIL, DIRECT CONTACT NUMBER AND REQUEST FOR A CALL BACK.
--- NOTE | 2021-07-23 15:30 | NUR ---
07/23/21 RD FOLLOW UP COMPLETED PLEASE REFER TO NUTRITION ASSESSMENT UNDER CARE ACTIVITY FOR ESTIMATED NUTRITIONAL NEEDS. 1. CONTINUE VITAL AF 1.2 @ 50 ML/HR TOLERATED -FWF: 200 ML Q6H OR PER MD -PROVIDES 1440 KCAL AND 90 GM PROTEIN, MEETING ESTIMATED NUTRITIONAL NEEDS 2. MONITOR GASTRIC RESIDUALS AND NUTRITION-RELATED LABS 3. RD TO FOLLOW-UP 2-3 DAYS, HIGH RISK RODOLFO [address]ARK RD
[2021-07-23 16:00] VITALS: BP 129/98
--- NOTE | 2021-07-23 19:03 | NUR ---
WILL ENDORSE CARE TO NIGHTSHIFT RN.
--- NOTE | 2021-07-23 19:13 | NUR ---
RECEIVED ENDORSEMENT FROM AM NURSE. PATIENT IS APHASIC, ASLEEP. NO SOB NOTED BREATHING EVEN UNLABORED. ON ROOM AIR. ALL SAFETY PRECAUTIONS ARE IN PLACE. TUBE FEEDING RUNNING AT 50 MLS/HR TOLERATING WELL. HEAD OF BED ELEVATED. WILL CONTINUE TO MONITOR.
[2021-07-23 20:00] VITALS: BP 121/72
--- NOTE | 2021-07-23 21:29 | NUR ---
ADMINISTERED SCHEDULED MEDICATIONS DUE.
[2021-07-23] MEDS: traZODone 50 MG TAB GT SCH (21:30)
--- NOTE | 2021-07-23 23:25 | NUR ---
URINE COLLECTED FROM NEPHROSTOMY TUBE FOR URINE CULTURE SENT TO LAB.
[2021-07-24] VITALS: BP 128/61
--- NOTE | 2021-07-24 00:30 | NUR ---
PATIENT CLEANED, CHANGED AND REPOSITIONED. PT IN STABLE CONDITION.
[2021-07-24] MEDS: MENTHOL/ZINC OXIDE 113 GM TUBE TP SCH ×2 (01:35→12:30)
[2021-07-24 04:00] VITALS: BP 134/80
--- NOTE | 2021-07-24 07:17 | NUR ---
ENDORSED PATIENT TO AM NURSE FOR CONTINUITY OF CARE. PT IS STABLE.
[2021-07-24 08:11] VITALS: BP 130/84
--- NOTE | 2021-07-24 08:38 | NUR ---
PT HAS NO IV ACCESS. PER MOLD SETTER UNABLE TO START NEW ONE. ATTEMPTED THIS MORNING AND WAS UNSUCCESSFUL. ID MD AWARE. SWITCHED MEDICATION TO GTUBE ROUTE.
[2021-07-24] MEDS: LINEZOLID 600 MG TAB GT SCH ×2 (08:55→20:56)
[2021-07-24] MEDS: PANTOPRAZOLE 40 MG INJ VIAL IVP SCH (08:56)
[2021-07-24] MEDS: HYDRAGUARD CREAM TP SCH (08:56)
[2021-07-24 12:00] VITALS: BP 124/82
[2021-07-24 16:00] VITALS: BP 124/82
--- NOTE | 2021-07-24 19:15 | NUR ---
RECEIVED REPORT FROM AM NURSE. PATIENT IS NON VERBAL. NO SOB, BREATHING REGULAR UNLABORED. TUBE FEEDING VITAL AF RUNNING AT 50 ML/HR TOLERATING WELL. ALL SAFETY PRECAUTIONS ARE IN PLACE. WILL CONTINUE TO MONITOR.
[2021-07-24 20:00] VITALS: BP 114/72
--- NOTE | 2021-07-24 20:50 | NUR ---
SCHEDULED MEDICATIONS ADMINISTERED.
--- NOTE | 2021-07-24 20:55 | NUR ---
PATIENT CLEANED, CHANGED AND REPOSITIONED.
[2021-07-24] MEDS: traZODone 50 MG TAB GT SCH (20:56)
[2021-07-25] VITALS: BP 114/67
[2021-07-25] MEDS: MENTHOL/ZINC OXIDE 113 GM TUBE TP SCH ×2 (01:03→13:44)
[2021-07-25 04:00] VITALS: BP 115/70
--- NOTE | 2021-07-25 07:22 | NUR ---
ENDORSED PATIENT TO AM NURSE FOR CONTINUITY OF CARE. PT IS STABLE.
--- NOTE | 2021-07-25 07:25 | NUR ---
RECEIVED REPORT FROM SPRAY PAINTING MACHINE OPERATOR NURSE FOR CONTINUITY OF CARE. PT ALSEEP IN BED. BREATHING SYMMETRICAL ON ROOM AIR. GT INTACT AND PATENT RUNNING VITAL AF 1.2 AT 50CC/HR. HOB KEPT ELEVATED. NO PERIPHERAL IV LINE NOTED. WITH LEFT NEPHROSTOMY TUBE DRAINING YELLOW URINE. FLACC O. ALL SAFETY MEASURES IN PLACE.
[2021-07-25 08:00] VITALS: BP 117/78
[2021-07-25] MEDS: LINEZOLID 600 MG TAB GT SCH ×2 (08:38→20:20)
[2021-07-25] MEDS: levoFLOXacin 750 MG TAB GT SCH (08:38)
[2021-07-25] MEDS: HYDRAGUARD CREAM TP SCH (09:00)
[2021-07-25] MEDS: PANTOPRAZOLE 40 MG INJ VIAL IVP SCH (09:00)
--- NOTE | 2021-07-25 10:40 | NUR ---
INSERTED IV LINE ON RIGHT HAND 22G, NO S/SX OF INFILTRATION NOTED.
[2021-07-25 12:00] VITALS: BP 128/62
[2021-07-25 12:28] LABS: ANION GAP 12.2 (8-16); BASOPHILS # (AUTO) 0.2 K/uL (0.00-0.22); CARBON DIOXIDE 29.5 mmol/L (21-32); CREATININE 0.6 mg/dL (0.6-1.3); EOSINOPHILS # (AUTO) 1.4 K/uL (0-0.4); HEMATOCRIT 34.3 % (36-48); HEMOGLOBIN 11.2 g/dL (12.0-16.0); LYMPHOCYTES # (AUTO) 1.7 K/uL (2.5-16.5); LYMPHOCYTES % (AUTO) 9.9 % (20.5-51.1); MEAN CORPUSCULAR HEMOGLOBIN 28 pg (27-31); MEAN CORPUSCULAR HGB CONC 33 g/dL (33-37); MEAN CORPUSCULAR VOLUME 85.3 fL (80-94); MONOCYTES # (AUTO) 0.8 K/uL (0.8-1.0); MONOCYTES % (AUTO) 4.9 % (1.7-9.3); NEUTROPHILS # (AUTO) 12.9 K/uL (1.8-7.7); NEUTROPHILS % (AUTO) 76.2 % (42.2-75.2); PLATELET COUNT (AUTO) 580 K/uL (140-450); POTASSIUM 3.7 mmol/L (3.5-5.1); RED BLOOD CELL COUNT(AUTO) 4.02 MIL/uL (4.20-5.40); WHITE BLOOD COUNT (AUTO) 16.9 K/uL (4.8-10.8)
--- NOTE | 2021-07-25 13:49 | NUR ---
DR ARIZMENDI MADE AWARE OF WBC 16.9 STILL HIGH BUT WENT DOWN FROM 28.3 ON 07/23, URINE CULTURE STILL PENDING. ALSO LEFT MESSAGE TO DR HERNANDEZ CONSULTING ID .
[2021-07-25 16:00] VITALS: BP 117/85
--- NOTE | 2021-07-25 16:30 | NUR ---
PT NON VERBAL. BREATHING SYMMETRICAL, ON ROOM AIR. FLACC O. GT FEEDING TOLERATING WELL. HOB KEPT ELEVATED. ALL SAFETY MEASURES IN PLACE.
--- NOTE | 2021-07-25 19:32 | NUR ---
ENDORSED PT TO CAP BLOCKER NURSE, IN STABLE CONDITION. EMPTIED LEFT NEPHROSTOMY TUBE AGAIN AND OBTAINED 200CC OUTPUT.
--- NOTE | 2021-07-25 19:35 | NUR ---
RECEIVED BEDSIDE REPORT FROM DAY SHIFT NURSE. PATIENT IS AWAKE, APHASIC, NOT ABLE TO FOLLOW COMMANDS. RESPIRATION EVEN UNLABORED ON ROOM AIR. NO DISTRESS NOTED. SKIN IS WARM AND DRY. IV PATENT AND INTACT. G-TUBE FEEDING NOTED. LEFT NEPHROSTOMY BAG NOTED. PLAN OF CARE UPDATED. ALL SAFETY MEASURES IN PLACE. BED IS AT LOW POSITION. CALL LIGHT WITHIN REACH. WILL CONTINUE TO MONITOR
[2021-07-25 20:00] VITALS: BP 108/73
--- NOTE | 2021-07-25 20:00 | NUR ---
INITIAL ASSESSMENT DONE. VITALS WERE TAKEN. CHECKED G-TUBE RESIDUAL, OBTAINED 75CC. WILL CONTINUE TO MONITOR
[2021-07-25] MEDS: traZODone 50 MG TAB GT SCH (20:20)
--- NOTE | 2021-07-25 20:20 | NUR ---
ALL SCHEDULED MEDS WERE GIVEN PER ORDER. WILL CONTINUE TO MONITOR.
[2021-07-26] VITALS: BP 102/66
--- NOTE | 2021-07-26 00:24 | NUR ---
VITALS WERE TAKEN. PT IS NO DISTRESS NOTED
--- NOTE | 2021-07-26 00:45 | NUR ---
WOUND CARE PROVIDED
--- NOTE | 2021-07-26 01:32 | NUR ---
MADE ROUNDS, PATIENT SLEEPING RESPIRATION EVEN UNLABORED ON ROOM AIR. NO DISTRESS NOTED
[2021-07-26 04:00] VITALS: BP 107/67
--- NOTE | 2021-07-26 04:10 | NUR ---
VITALS WERE TAKEN
[2021-07-26] MEDS: MENTHOL/ZINC OXIDE 113 GM TUBE TP SCH ×2 (04:57→12:35)
--- NOTE | 2021-07-26 05:23 | NUR ---
AM CARE PROVIDED
--- NOTE | 2021-07-26 07:19 | NUR ---
ENDORSED PATIENT TO DAY SHIFT NURSE FOR CONTINUITY OF CARE
--- NOTE | 2021-07-26 07:20 | NUR ---
RECEIVED REPORT FROM APPLICATION MANAGER NURSE FOR CONTINUITY OF CARE. PT AWAKE IN BED. BREATHING SYMMETRICAL ON ROOM AIR. FLACC O. WITH RIGHT HAND 22G, ON SALINE LOCK. GT INTACT AND PATENT, WITH NEPHROSTOMY TUBE DRAINING YELLOW URINE. ALL SAFETY MEASURES IN PLACE.
[2021-07-26 08:00] VITALS: BP 127/91
[2021-07-26] MEDS: PANTOPRAZOLE 40 MG INJ VIAL IVP SCH (08:11)
[2021-07-26] MEDS: LINEZOLID 600 MG TAB GT SCH ×2 (08:11→22:07)
[2021-07-26] MEDS: HYDRAGUARD CREAM TP SCH (08:36)
--- NOTE | 2021-07-26 08:37 | NUR ---
NOTED RIGHT HAND IV LINE, INFILTRATED AND LEAKING. CHANGED TO LEFT HAND 24G, NO S/SX OF INFILTRATION NOTED AT THIS TIME.
--- NOTE | 2021-07-26 09:04 | NUR ---
DC PLANNING: THE PATIENT ADMITTED THROUGH THE ER FROM AN [facility] IN [place] WITH C/O FEVER OF 101, H/O CEREBRAL PALSY AND DEVELOPMENTAL DELAY, PATIENT WITH PEG AND COLOSTOMY, NON-VERBAL. CT OF ABD/PELVIS SHOWS SEVERE LEFT HYDRONEPHROSIS AND MULTIPLE CALCULI AND A CALCIFIED LESION IN THE LL OF LIVER. WBC'S 30.7 ON ADMISSION, LACTIC ACID 3.6, ADMITTED FOR SEPSIS, UTI AND HYDRONEPHROSIS MANAGEMENT. CONSULTS WITH ID, NEPHRO, UROLOGY AND WOUND CONSULT. STARTED ON LEVAQUIN AND ZYVOX. LEFT NEPHROSTOMY TUBE PLACED BY IR, WBC'S TODAY AT 16.9, CONTINUES ON IV ABX. THE PATIENT'S BASELINE IS NON-VERBAL AND TOTAL CARE AT [facility], DC PLAN IS FOR THE PATIENT TO RETURN WHEN CLINICALLY STABLE THE CHAR [facility]END[facility] CELL[facility] STATES THAT THEY CAN ACCEPT THE PATIENT WITH THE NEPHROSTOMY TUBE. UROLOGY RECOMMENDS THAT IT BE CHANGED EVERY 2-3 MONTHS. CM WILL FOLLOW. Addendum: 07/26/21 at 0914 by Darline Rocha CM Amended: Links added. Addendum: 07/26/21 at 1256 by Darline Rocha CM DC PLANNING: THE PATIENT WILL DC BACK TO [facility] AND CONTINUE ON PO ABX. CM SPOKE WITH [facility], THEY [facility] CALL CM WITH PHARMACOLOGY ASSOCIATE TIME. REPORT TO BE CALLED TO THU ABEL AT [facility] AT [phone]. DC INFORMATION GIVEN TO THE PATIENTS THU SON CM WILL FOLLOW FOR NEEDS. Addendum: 07/26/21 at 1454 by Darline Rocha CM DC PLANNING: PATIENTS NURSE ENDORSED THAT THE FACILITY HAS QUESTIONS ABOUT ACCEPTING THE PATIENT BACK, KENDELL SPOKE WITH THE THU ABEL ([phone]), SHE IS QUESTIONING IF PATIENT IS APPROPRIATE FOR THE [facility] AND WILL HAVE DR BOWLING CALL DR ARIZMENDI TO DISCUSS CONTINUED TREATMENT AND PLACEMENT. KENDELL SPOKE WITH EMMY DARIN WHO STATES THAT THEY CAN'T ACCEPT THE PATIENT WITH [facility], SHE NEEDS TO BE STRAIGHT M/FABIAN. SHE WAS SUPPOSED TO BE STRAIGHT M/FABIAN OF 07/16. PATIENT IS REGIONAL CENTER CONNECTED AND WILL NEED AUTHORIZATION FOR WHICH SNF SHE GOES TO. [facility] WORKER PER EMMY IS GETACHEW URIBE, EMMY WILL CALL BACK WITH HER PHONE NUMBER. CM WILL FOLLOW. Addendum: 07/26/21 at 1626 by Darline Rocha CM DC PLANNING: KENDELL EMAILED THE PATIENTS REGIONAL WORKER GETACHEW ASKING FOR DIRECTION ON SNF PLACEMENT, NO RESPONSE YET. DR ARIZMENDI NOTIFIED THAT PATIENT IS NOT ACCEPTED BACK TO [facility] AND THAT KENDELL IS WORKING WITH THE REGIONAL WORKER REGARDING PLACEMENT. CM WILL FOLLOW. Addendum: 07/29/21 at 1033 by Darline Rocha CM DC PLANNING: KENDELL RECEIVED A CALL FROM GETACHEW AT THE [facility] IN RESPONSE TO EMAIL SENT TO HER THURSDAY. HER PHONE IS [phone]. EXPLAINED THAT PATIENT WILL NEED SNF PLACEMENT IN AN [facility] CONTRACTED FACILITY HER FACILITY CAN'T TAKE HER BACK AT THIS TIME. GETACHEW WOULD LIKE THE PATIENT CLOSER TO THE FAMILY WHO ARE CLOSE TO [place] AND ASKED THAT PATIENT BE REFERRED TO [facility]. KENDELL SPOKE WITH TACOS AT [facility] AND [facility] IS CONTRACTED, CM FAXED REFERRAL FOR PLACEMENT AND WILL FOLLOW FOR RESPONSE. Addendum: 07/29/21 at 1415 by Darline Rocha CM DC PLANNING: PATIENT DECLINED BY [facility], NO INTERMEDIATE FEMALE BEDS. REFERRAL FAXED TO [facility] AND GETACHEW SCHUSTER AT THE [facility] IS AWARE. CM WILL FOLLOW. Addendum: 07/29/21 at 1613 by Darline Rocha CM DC PLANNING: PATIENT ACCEPTED TO [facility], NUMBER TO CALL REPORT IS [phone]. DR VAZQUEZ TO FOLLOW, ROOM NUMBER PENDING. REQUEST FOR TRANSPORT FAXED TO [facility], PHONE [phone]. REQUESTED 1800 PHARMACOLOGY ASSOCIATE TIME, NUMBER FOR THE PATIENTS NURSE CHRISTIAN ON FORM SO THEY CAN FOLLOW UP ON CONFIRMATION FOR PHARMACOLOGY ASSOCIATE. CM WILL FOLLOW. Addendum: 07/29/21 at 1621 by Darline Rocha CM DC PLANNING: KENDELL SPOKE WITH THE [facility] WORKER GETACHEW TO LET HER KNOW THAT THE PATIENT IS GOING TO [facility]. KENDELL WILL FOLLOW.
--- NOTE | 2021-07-26 11:46 | NUR ---
PT TRANSFERRED TO ROOM 106B. PT IS AWAKE, NON VERBAL. BREATHING SYMMETRICAL ON ROOM AIR. FLACC O. PT CHANGED AND CLEANED WELL. GT INTACT AND PATENT. LEFT NEPHROSTOMY TUBE INTACT DRAINING YELLOW URINE. ALL SAFETY MEASURES IN PLACE.
[2021-07-26 12:00] VITALS: BP 105/74
--- NOTE | 2021-07-26 12:18 | NUR ---
07/26/21 RD FOLLOW UP COMPLETED PLEASE REFER TO NUTRITION ASSESSMENT UNDER CARE ACTIVITY FOR ESTIMATED NUTRITIONAL NEEDS. 1. CONTINUE VITAL AF 1.2 @ 50 ML/HR TOLERATED -FWF: 200 ML Q6H OR PER MD -PROVIDES 1440 KCAL AND 90 GM PROTEIN, MEETING ESTIMATED NUTRITIONAL NEEDS 2. MONITOR GASTRIC RESIDUALS AND NUTRITION-RELATED LABS 3. RD TO FOLLOW-UP 3-5 DAYS, MODERATE RISK (DOWNGRADED D/T PT TOLERATING TF WELL WITH NO GI SYMPTOMS OR GASTRIC RESIDUALS) [address]
[2021-07-26] MEDS ORDERED: LINE600T10 GT (12:29)
[2021-07-26] MEDS ORDERED: LEVO750T51 GT (12:29)
--- NOTE | 2021-07-26 13:15 | NUR ---
WOUND CARE RE-EVALUATION NOTE: MOISTURE ASSOCIATED DERMATITIS TO PERINEUM AND BUTTOCKS, SKIN REDNESS IMPROVING AND RESPONDING TO CALMOSEPTINE CR. SKIN MOIST AND INTACT.
--- NOTE | 2021-07-26 13:18 | NUR ---
SPOKE WITH THU ABEL FROM [facility]. STATED SHE NEEDS REPORT FIRST TO DETERMINE IF THEY WILL BE ABLE TO TAKE PT, WILL CALL BACK FOR APPLICATION TECHNICIAN TIME, STATED SHE WILL DISCUSS WITH HER MANAGER FOOD SAFETY FIRST BEFORE THEY ARRANGE FOR TRANSPORTATION. Addendum: 07/26/21 at 1354 by Yohana Guerrero RN PAGE CONCERNED ABOUT PT'S WBC. MADE AWARE THAT PT'S WBC HAS BEEN TRENDING DOWN AND THAT PT IS CURRENTLY ON ANTIBIOTIC. CM UPDATED.
--- NOTE | 2021-07-26 15:02 | NUR ---
RECEIVED UPDATE FROM CM, PAGE ANDINO FROM [facility] IS QUESTIONING PT'S PLACEMENT APPROPRIATENESS IN [facility] AND WILL HAVE DR BOWLING TALK TO DR CARRERO. AWAITING FOR FURTHER UPDATES FROM CM.
[2021-07-26 16:00] VITALS: BP 104/75
--- NOTE | 2021-07-26 17:35 | NUR ---
PT AWAKE IN BED. BREATHING SYMMETRICAL. FLACC O. GT INTACT AND PATENT, TOLERATING GTF WELL. HOB KEPT ELEVATED. APPLIED CALMOSEPTINE DURING CARE FOR ID ON BUTTOCKS. ALL SAFETY MEASURES IN PLACE.
--- NOTE | 2021-07-26 19:30 | NUR ---
RECEIVED REPORT FROM RN DAYSHIFT NURSE AT BEDSIDE FOR CONTINUITY OF CARE, PT IN BED AOX1 SHE HAS A LEFT HAND 24 GUAGE WHICH IS SALINE LOCKED. PT HAS A G TUBE WHICH IS RUNNING VITAL AF 1.2 AT 50MLS/HR. PT ALSO HAS A LEFT NEPHROSTOMY TUBE WHICH IS INTACT AND DRAINING LIGHT CLOUDY PALE URINE. PT IS INCONTINENT ANS HAS RED RAW SKIN FROM INCONTINENT DERMATITIS. HOB UP ALL ORDERED PRECAUTIONS IN PLACE.
[2021-07-26 20:00] VITALS: BP 127/93
--- NOTE | 2021-07-26 20:00 | NUR ---
PT WAS TURNED, CHANGED AND REPOSITIONED IN BED V/S FOLLOWS: T 97.4 P 102 R 18 B/P 127/93 02 94% ON ROOM AIR. TUBE FEEDING RUNNING ORDERED. ALL ORDERED PRECAUTIONS IN PLACE.
--- NOTE | 2021-07-26 21:30 | NUR ---
PT GIVEN TRAZODONE AND ZYVOX VIA G TUBE, PT UNABLE TO COMPREHEND EDUCATION REGARDING MEDICATION. ALL ORDERED PRECAUTIONS IN PLACE.
[2021-07-26] MEDS: traZODone 50 MG TAB GT SCH (22:07)
[2021-07-27] VITALS: BP 102/67
--- NOTE | 2021-07-27 | NUR ---
PT IN BED, ROUNDS DONE, SHE WAS TURNED, CHANGED AND REPOSITIONED IN BED. V/S FOLLOWS: T 97.8 R 20 P 110 R 20 B/P 102/67 02 93%. ALL ORDERED PRECAUTIONS IN PLACE.
[2021-07-27] MEDS: MENTHOL/ZINC OXIDE 113 GM TUBE TP SCH ×2 (01:47→13:15)
[2021-07-27 04:00] VITALS: BP 113/65
--- NOTE | 2021-07-27 06:00 | NUR ---
PT IN BED SHE WAS TURNED CHANGED AND REPOSITIONED IN BED NEPHROSTOMY DRAINED 50MLS. SHE HAS NO S/S OF PAIN OR DISTRESS NOTED. BARRIER CREAM ORDERED ORDERED.
--- NOTE | 2021-07-27 07:30 | NUR ---
REPORT RECEIVED FROM PM SHIFT FOR CONTINUITY OF CARE, PT APPEARS ASLEEP, SAFETY MEASURES MAINTAINED, CALL LIGHT WITHIN REACH, WILL CONTINUE TO MONITOR
[2021-07-27 08:00] VITALS: BP 119/81
[2021-07-27] MEDS: PANTOPRAZOLE 40 MG INJ VIAL IVP SCH (08:44)
[2021-07-27] MEDS: LINEZOLID 600 MG TAB GT SCH ×2 (08:44→21:10)
[2021-07-27] MEDS: levoFLOXacin 750 MG TAB GT SCH (08:44)
[2021-07-27] MEDS: HYDRAGUARD CREAM TP SCH (08:45)
[2021-07-27 12:00] VITALS: BP 124/76
--- NOTE | 2021-07-27 12:15 | NUR ---
PT GIVEN BED BATH, REPOSITIONED, SAFETY MEASURES MAINTAINED, WILL CONTINUE TO MONITOR
[2021-07-27 16:00] VITALS: BP 128/70
--- NOTE | 2021-07-27 19:20 | NUR ---
RECEIVED PT AWAKE , FLACC O , NID - O2 SAT WNL , ON G TUBE FEEDING TOLERATING - RESIDUAL 20 CC - SOFT ABD. W/ NEPROSTOMY TUBE INTACT CONNECTING TO URINE BAG DRAINING CLEAR YELLOW , GOOD U.O . FALL RISK - SIDERAILS UP , LOW REGI SCALE - WILL KEEP PT DRY AND CLEAN AT ALL TIMES , ON TELE MONITOR BIT ST - AFEBRILE , RESTING ON BED COMFORTABLY . WILL CONT. TO MONITOR .
[2021-07-27 20:00] VITALS: BP 112/62
[2021-07-27] MEDS: traZODone 50 MG TAB GT SCH (21:11)
--- NOTE | 2021-07-27 22:00 | NUR ---
ROUNDS , AWAKE , NO SIGNS OF DISTRESS NOTED AT THIS TIME .
[2021-07-28] VITALS: BP 122/60
--- NOTE | 2021-07-28 | NUR ---
ROUNDS , AWAKE , NO SIGNS OF DISTRESS NOTED AT THIS TIME .
[2021-07-28] MEDS: MENTHOL/ZINC OXIDE 113 GM TUBE TP SCH ×2 (01:13→13:00)
--- NOTE | 2021-07-28 01:59 | NUR ---
SLEEPING - CHEST RISE AND FALL EQUALLY . ON TELE MONITOR
[2021-07-28 04:00] VITALS: BP 123/82
--- NOTE | 2021-07-28 04:00 | NUR ---
ROUNDS NO SIGNS OF DISTRESS NOTED AT THIS TIME .
--- NOTE | 2021-07-28 07:30 | NUR ---
RECIVED REPORT FROM PM SHIFT RN FOR CONTINUITY OF CARE. PT. AWAKE. STABLE. BREATHINGS NORMAL. NO DISTRESS OBSERVED. GT FEEDING RUNNING DALE. WELL. SAFETY MEASURES IN PLACE. WILL CONTINUE TO MONITOR THE PT.
--- NOTE | 2021-07-28 07:30 | NUR ---
ENDORSED - PT - STABLE .
[2021-07-28 08:00] VITALS: BP 128/98
[2021-07-28] MEDS: PANTOPRAZOLE 40 MG INJ VIAL IVP SCH (08:16)
[2021-07-28] MEDS: LINEZOLID 600 MG TAB GT SCH ×2 (08:16→20:41)
[2021-07-28] MEDS: HYDRAGUARD CREAM TP SCH (08:17)
--- NOTE | 2021-07-28 09:14 | NUR ---
PT. COMFORTABLY RESTING.. NO S/SX OF DISTRESS NOTED. ADMINISTERED SCHEDULED MEDICATIONS. PT. TOLERATED WELL. NO RESIDUAL NOTED. NO N/V NOTED. ALL SAFETY MEASURES IN PLACE. WILL CONTINUE TO MONITOR THE PT.
[2021-07-28 12:00] VITALS: BP 132/82
--- NOTE | 2021-07-28 14:00 | NUR ---
MADE ROUND. PT. AWAKE, COMFORTABLY LYING IN THE BED. NO S/SX OF DISTRESS OBSERVED. ON ROOM AIR. BED IN LOW POSITION. WILL CONTINUE TO MONITOR THE PT.
[2021-07-28 14:47] LABS: BASOPHILS # (AUTO) 0.1 K/uL (0.00-0.22); BASOPHILS % (AUTO) 0.9 % (0.0-2.0); EOSINOPHILS # (AUTO) 0.9 K/uL (0-0.4); EOSINOPHILS % (AUTO) 6.1 % (0.0-4.0); HEMATOCRIT 36.7 % (36-48); HEMOGLOBIN 11.6 g/dL (12.0-16.0); LYMPHOCYTES % (AUTO) 13.7 % (20.5-51.1); MEAN CORPUSCULAR HEMOGLOBIN 28 pg (27-31); MEAN CORPUSCULAR HGB CONC 32 g/dL (33-37); MEAN CORPUSCULAR VOLUME 86.8 fL (80-94); MONOCYTES # (AUTO) 0.7 K/uL (0.8-1.0); MONOCYTES % (AUTO) 4.9 % (1.7-9.3); NEUTROPHILS # (AUTO) 10.9 K/uL (1.8-7.7); NEUTROPHILS % (AUTO) 74.4 % (42.2-75.2); PLATELET COUNT (AUTO) 578 K/uL (140-450); RED BLOOD CELL COUNT(AUTO) 4.23 MIL/uL (4.20-5.40); RED CELL DISTRIBUTION WIDTH 17.5 % (11.6-13.7); WHITE BLOOD COUNT (AUTO) 14.6 K/uL (4.8-10.8)
[2021-07-28 15:15] LABS: ANION GAP 11.2 (8-16); CARBON DIOXIDE 28.1 mmol/L (21-32); CREATININE 0.6 mg/dL (0.6-1.3); POTASSIUM 4.3 mmol/L (3.5-5.1)
[2021-07-28 16:00] VITALS: BP 113/68
--- NOTE | 2021-07-28 17:26 | NUR ---
KEPT CLEAN AND DRY THE PT. DURING SHIFT. REPOSITIONED THE PT. GT FEEDING CONTINUE. NO RESIDUAL OR N/V NOTED. PT. REMAINED STABLE. NO ACUTE DISTRESS NOTED. ALL SAFETY MEASURES IN PLACE. WILL CONTINUE TO MONITOR THE PT.
--- NOTE | 2021-07-28 19:23 | NUR ---
ENDORSED REPORT TO PM SHIFT RN FOR CONTINUITY OF CARE. PT. STABLE.
[2021-07-28 20:00] VITALS: BP 112/69
[2021-07-28] MEDS: traZODone 50 MG TAB GT SCH (20:40)
[2021-07-29] VITALS: BP 110/60
--- NOTE | 2021-07-29 | NUR ---
rounds , no signs of acute distress noted , will cont. to monitor
[2021-07-29] MEDS: MENTHOL/ZINC OXIDE 113 GM TUBE TP SCH ×2 (01:00→13:44)
--- NOTE | 2021-07-29 02:00 | NUR ---
SLEEPING , CHEST RISE AND FALL EQUALLY
[2021-07-29 04:00] VITALS: BP 115/72
--- NOTE | 2021-07-29 04:00 | NUR ---
AWAKE , O2 SAT WNL , FLACC 0 . G TUBE TOLERATING
--- NOTE | 2021-07-29 06:00 | NUR ---
AWAKE , NO SIGNS OF DISTRESS NOTED AT THIS TIME . ON TELE MONITOR .
--- NOTE | 2021-07-29 07:27 | NUR ---
ENDORSED - PT - STABLE .
--- NOTE | 2021-07-29 07:27 | NUR ---
RECEIVED REPORT FROM WORKDAY DIRECTOR NURSE FOR CONTINUITY OF CARE.
[2021-07-29 08:00] VITALS: BP 135/79
[2021-07-29] MEDS: PANTOPRAZOLE 40 MG INJ VIAL IVP SCH (09:25)
[2021-07-29] MEDS: levoFLOXacin 750 MG TAB GT SCH (09:25)
[2021-07-29] MEDS: HYDRAGUARD CREAM TP SCH (09:26)
--- NOTE | 2021-07-29 09:32 | NUR ---
PT AWAKE NO DISTRESS NOTE. GIVEN MEDICATION VIA GT NO ADVERSE REACTION NOTED. RN GAVE IVP MEDICATION.
--- NOTE | 2021-07-29 11:30 | NUR ---
PATIENT ON BED RESTING HEAD OF BED ELEVATED FOR ASPIRATION PRECAUTION.
[2021-07-29 12:00] VITALS: BP 114/74
--- NOTE | 2021-07-29 13:30 | NUR ---
REPOSITION PATIENT. CHANGE AND TREATMENT DONE ON LIZETT ANAL REDNESS TOLERATED WELL. KEEP HEAD OF BED ELEVATED FOR ASPIRATION PRECAUTION.
[2021-07-29 16:00] VITALS: BP 118/70
--- NOTE | 2021-07-29 16:00 | NUR ---
PATIENT AWAKE PULLED HER UP AGAIN AND VITAL SIGN CHECKED. NO DISTRESS NOTE. ALL SAFETY MEASURE IN PLACE.
--- NOTE | 2021-07-29 17:37 | NUR ---
GAVE REPORT TO NURSE MARIE CHARGE NURSE AT [facility] FOR CONTINUITY OF CARE.
--- NOTE | 2021-07-29 17:45 | NUR ---
I TRIED TO CALL TRANSPORTATION [facility] BUT NO ONE ANSWER AND ANSWERING MACHINE SAID ITS OFFICE CLOSED AT 5 PM.
--- NOTE | 2021-07-29 18:02 | NUR ---
CALLED [facility] [employer] INSPECTOR AFTER HOURS [phone], UNABLE TO LEFT MESSAGE, THEY ARE ON VACATION, CALLED THE NUMBER DIRECTED BY THE VOICE MAIL [phone], LEFT MESSAGE.
--- NOTE | 2021-07-29 18:48 | NUR ---
PATIENT ALERT, AWAKE ON STABLE CONDITION REMOVED IV WITH CATHETER INTACT AND NAME BAND REMOVED. DISCHARGE PACKET GIVEN TO TRANSPORTATION TO BE GIVEN TO FACILITY. ALL BELONGING GIVEN.
== END 2021-07-29 18:45 | DRG 720 ==
LOC: MED 20:57 → MTU 07-18 01:35
PROVIDERS: ADMIT Internal Medicine; ATTEND Internal Medicine
PROC: 30233N1 Transfusion of Nonautologous Red Blood Cells into Peripheral Vein, Percutaneous Approach (ICD-10-PCS; 2021-07-19)
PROC: 30233N1 Transfusion of Nonautologous Red Blood Cells into Peripheral Vein, Percutaneous Approach (ICD-10-PCS; 2021-07-20)
PROC: 0T9130Z Drainage of Left Kidney with Drainage Device, Percutaneous Approach (ICD-10-PCS; principal; 2021-07-22)
PROC: BT42ZZZ Ultrasonography of Left Kidney (ICD-10-PCS; 2021-07-22)
DX: A41.9 Sepsis, unspecified organism (principal); E43 Unspecified severe protein-calorie malnutrition; J18.9 Pneumonia, unspecified organism; G80.0 Spastic quadriplegic cerebral palsy; B95.2 Enterococcus as the cause of diseases classified elsewhere; F79 Unspecified intellectual disabilities; N13.6 Pyonephrosis; Z16.21 Resistance to vancomycin; Z20.822 Contact with and (suspected) exposure to COVID-19; R13.10 Dysphagia, unspecified; D64.9 Anemia, unspecified; K76.9 Liver disease, unspecified; Z88.0 Allergy status to penicillin; Z93.1 Gastrostomy status; Z93.6 Other artificial openings of urinary tract status; Z68.22 Body mass index [BMI] 22.0-22.9, adult; Z66 Do not resuscitate
CPT/HCPCS: 36415; 71045; 75989; 76770; 80048; 80053; 81003; 83605; 83735; 85025; 85610; 85730; 86886; 86900; 86901; 86920; 87040; 87081; 87086; 87186; 96365; 97163-GP; 99285; C9113; J0456; J0696; J1650; J1956; J2020; J2250; J2405; J3010; J7060; P9016; Q0092